=== PATIENT | male | born 1940 | race Caucasian/White ===

== ENCOUNTER 2018-02-18 07:00 | Day surgery (SDC) | payer MEDICARE, BC ==
[~2018-02-18 07:00] MED LIST: FENTANYL 100MCG/2ML SOL ONE; MIDAZOLAM 2 MG/2 ML SOL ONE
[2018-02-18] MEDS ORDERED: ACETAZOLAMIDE 250 MG PO ONE (07:12)
[2018-02-18] MEDS: TETRACAINE HCL 0.5 % 1 DROP SOL ONE ×3 (07:18→08:31)
[2018-02-18] MEDS: PHENYLEPHRINE HCL 10% OPHTHAL SOL ONE ×2 (07:19→07:30)
[2018-02-18] MEDS: KETOROLAC 0.5% OPTH 60 DROP SOL ONE ×2 (07:19→07:31)
[2018-02-18] MEDS: CYCLOPENTOLATE 1% SOL ONE ×2 (07:19→07:30)
[2018-02-18] MEDS ORDERED: POVIDONE IODINE 5% SOL ONE (08:25)
[2018-02-18] MEDS ORDERED: IMPRIMIS ONE (08:25)
[2018-02-18] MEDS ORDERED: LIDOCAINE HCL 1% MPF 30 SOL ONE (08:26)
[2018-02-18] MEDS ORDERED: BSS 500 ML 500 ML IR ONE (08:26)
[2018-02-18 08:58] VITALS: BP 132/75; PULSE 66; RESP 20; TEMP 97.5; O2SAT 96
== END 2018-02-18 09:10 | disposition home or self-care (01) | DRG 125 ==
LOC: SURG 07:00
PROVIDERS: ATTEND Ophthalmology
DX: H25.89 Other age-related cataract (principal)
CPT/HCPCS: J2250; J3010; A9270-GY; J2001